=== PATIENT | female | born 1980 | race Hispanic/Latino ===

== ENCOUNTER 2021-06-10 15:14 | Outpatient (CLI) | payer BC | END 2021-06-10 15:15 | disposition home or self-care (01) | LOC: BICRAD 15:14 | PROVIDERS: ATTEND Urology | DX: N20.1 Calculus of ureter (principal) | CPT/HCPCS: 74018 ==

== ENCOUNTER 2021-06-14 12:53 | Outpatient (CLI) | payer BC ==
[2021-06-15 00:10] LABS: SARS-CoV-2 PCR by NAA Not Detected (NotDetected)
== END 2021-06-14 12:54 | disposition home or self-care (01) ==
LOC: LABBT 12:53
PROVIDERS: ATTEND Urology
DX: Z20.822 Contact with and (suspected) exposure to COVID-19 (principal)
CPT/HCPCS: U0003; U0005

== ENCOUNTER 2021-06-15 08:58 | Day surgery (SDC) | payer BC ==
[2021-06-14 12:44] VITALS: BMI 42.9
[2021-06-15] MEDS ORDERED: Iopamidol 15 ML ONE (12:07)
[2021-06-15] MEDS ORDERED: Fentanyl 100 MCG/2 ML VIAL ONE (12:09)
[2021-06-15] MEDS ORDERED: Levofloxacin 500 mg/D5W 100 ml Premix Bag ONE (12:19)
[2021-06-15] MEDS ORDERED: Ondansetron PF 4 MG/2 ML Vial ONE (12:24)
[2021-06-15] MEDS ORDERED: Lidocaine 1% PF 5 ML VIAL ONE (12:24)
[2021-06-15] MEDS ORDERED: Dexamethasone 20 MG/5 ML VIAL ONE (12:24)
[2021-06-15] MEDS ORDERED: Glycopyrrolate 0.2 MG/ML 5 ML SYRINGE ONE (12:24)
[2021-06-15] MEDS ORDERED: Ketorolac Tromethamine 30 MG/ML VIAL ONE (12:24)
[2021-06-15] MEDS ORDERED: PROPOFOL 200 MG/20 ML VIAL ONE (12:24)
[2021-06-15] MEDS ORDERED: Oxybutynin 5 MG TAB ONE (13:15)
[2021-06-15] MEDS ORDERED: Phenazopyridine HCl 100 MG TAB ONE (13:15)
== END 2021-06-15 14:30 | disposition home or self-care (01) ==
LOC: SDC 08:58
PROVIDERS: ATTEND Urology
PROC: 0T768DZ Dilation of Right Ureter with Intraluminal Device, Via Natural or Artificial Opening Endoscopic (ICD-10-PCS; principal; 2021-06-15)
PROC: 0TC68ZZ Extirpation of Matter from Right Ureter, Via Natural or Artificial Opening Endoscopic (ICD-10-PCS; principal; 2021-06-15)
DX: N20.1 Calculus of ureter (principal); I10 Essential (primary) hypertension; E66.9 Obesity, unspecified; Z68.41 Body mass index [BMI] 40.0-44.9, adult; Z79.1 Long term (current) use of non-steroidal anti-inflammatories (NSAID); Z79.899 Other long term (current) drug therapy
CPT/HCPCS: 74420; 82365; 88300; J1100; J1885; J1956; J2405; J2704; J3010; Q9967